=== PATIENT | female | born 1970 | race Hispanic/Latino ===

== ENCOUNTER 2024-12-27 14:14 | Observation (INO) | payer BC ==
[~2024-12-27] VITALS: Ht 170.2 cm; Wt 55.2 kg
[2024-12-27 15:16] LABS: BASOPHILS # (AUTO) 0.02 K/uL (0.00-0.20); BASOPHILS % (AUTO) 0.3 % (0.0-5.0); EOSINOPHILS # (AUTO) 0.05 K/uL (0.00-0.70); EOSINOPHILS % (AUTO) 0.7 % (0.0-8.0); HEMATOCRIT 42.6 % (36-48); IMMATURE GRANULOCYTE ABSOLUTE 0.01 K/uL (0-1); LYMPHOCYTES # (AUTO) 2.4 K/uL (1.0-4.8); LYMPHOCYTES % (AUTO) 35.1 % (21.0-51.0); MEAN CORPUSCULAR HEMOGLOBIN 31.5 pg (27.0-33.0); MEAN CORPUSCULAR HGB CONC 34.3 g/dL (32.0-36.0); MONOCYTES # (AUTO) 0.6 K/uL (0.1-1.0); MONOCYTES % (AUTO) 8.7 % (3.0-13.0); NEUTROPHILS # (AUTO) 3.8 K/uL (1.8-7.7); NEUTROPHILS % (AUTO) 55.1 % (40.0-77.0); PLATELET COUNT (AUTO) 157 K/uL (130-400); RED BLOOD CELL COUNT(AUTO) 4.63 MIL/uL (4.00-5.50); RED CELL DISTRIBUTION WIDTH 11.9 % (11.0-15.5); WHITE BLOOD COUNT (AUTO) 6.9 K/uL (4.8-10.8)
[2024-12-27 15:22] LABS: CREATININE 0.7 mg/dL (0.5-1.0)
--- NOTE | 2024-12-27 15:51 | HMCIMG ---
CT HEAD/BRAIN W/O CONTRAST INDICATION: persistent headaches/dizziness TECHNIQUE: CT HEAD/BRAIN W/O CONTRAST. CT was performed with one or more of the following dose reduction techniques: Automated exposure control, adjustment of the mA and/or kV according to the patient's size, or use of the iterative reconstruction technique. Comparison: None FINDINGS: The ventricles and extra ventricular CSF spaces are within normal limits. No mass effect, midline shift or herniation. No extra axial collection. No acute intracranial bleed. The visualized paranasal sinuses and mastoid air cells are normally aerated. IMPRESSION: No acute intracranial findings.
--- NOTE | 2024-12-27 16:09 | ERN ---
General Chief Complaint: Dizzy/Light Headed Stated Complaint: DIZZY, HEADACHE CHILLS Time Seen by MD: 14:31 Time Seen by Midlevel: 14:31 Source: patient History of Present Illness Initial Comments Patient is a 54-year-old female with no significant past medical history presenting to the emergency department for persistent headaches and dizziness that has been ongoing for 15 days. She has already been seen by her primary care doctor who performed a CT scan that was normal. He was scheduled an MRI but the patient was unable to get an appointment until April. She was also referred to Neurology but states it will take months to see the specialist. Allergies: Coded Allergies: No Known Drug Allergies (Unverified Allergy, Unknown, 12/27/24) Past Medical History Past Medical History: No Pertinent History Past Surgical History: ROS Dictation CONSTITUTIONAL: Negative except for HPI HEAD/FACE: Negative except for HPI EENT: Negative except for HPI RESPIRATORY: Negative except for HPI GASTROINTESTINAL/ABDOMINAL: Negative except for HPI GENITOURINARY: Negative except for HPI MUSCULOSKELETAL: Negative except for HPI INTEGUMENTARY: Negative except for HPI NEUROLOGICAL/PSYCH: Negative except for HPI HEMATOLOGIC/LYMPHATIC: Negative except for HPI All Systems Negative, Except as noted above. 13 point review of systems assessed and all negative except for above. Physical Exam Physical Exam Dictation Vital Signs reviewed General Appearance: Alert, oriented x 3, no acute distress, well developed, nourished. Head and Face: non-traumatic. Eyes: PERRL, pink conjunctivas, eyelid no trauma, anterior chamber with arcus senilis. Ears: Pinnas intact and no signs of trauma or erythema ear canals clear and no discharge TM no erythema Nose: No discharge, no bleeding. Oropharynx: Mouth normal, tongue pink, pharynx clear,no erythema, tonsils no exudates, no abscesses noted, mucous membrane moist Neck: Supple, non-tender, no thyromegaly, no masses, no JVD, no bruits Breast:Deferred Chest:No tenderness, no crepitus, no paradoxical movement, no retractions Lungs:Clear, well-ventilated, symmetric, no rales, no wheezing, no rhonchi, no stridor, good breath sounds bilaterally Heart: Regular rate, regular rhythm, no murmur, no gallops Vascular: no peripheral edema, Abdomen: Soft, positive bowel sounds, nondistended, no guarding, nontender, no rebound, no masses no hepatomegaly, no splenomegaly, no Cruz's sign, no hernias. Rectal: Deferred Genital: Deferred Neurological: Normal speech, motor function intact, sensory function intact Musculoskeletal: Neck nontender, full range of motion, back nontender, full range of motion, Extremities: nontender, full range of motion Skin: Color pink, dry, no turgor, no rash, no lacerations, no abrasions, no contusions. Lymphatic: Deferred Results Laboratory and Microbiology Lab and Micro Result Laboratory Tests Test 12/27/24 15:07 White Blood Count 6.9 K/uL (4.8-10.8) Red Blood Count 4.63 MIL/uL (4.00-5.50) Hemoglobin 14.6 g/dL (12.0-16.0) Hematocrit 42.6 % (36-48) Mean Corpuscular Volume 92.0 fL (79-99) Mean Corpuscular Hemoglobin 31.5 pg (27.0-33.0) Mean Corpuscular Hemoglobin Concent 34.3 g/dL (32.0-36.0) Red Cell Distribution Width 11.9 % (11.0-15.5) Platelet Count 157 K/uL (130-400) Mean Platelet Volume 10.2 fL (7.5-10.5) Immature Granulocyte % (Auto) 0.1 % (0-1) Neutrophils (%) (Auto) 55.1 % (40.0-77.0) Lymphocytes (%) (Auto) 35.1 % (21.0-51.0) Monocytes (%) (Auto) 8.7 % (3.0-13.0) Eosinophils (%) (Auto) 0.7 % (0.0-8.0) Basophils (%) (Auto) 0.3 % (0.0-5.0) Neutrophils # (Auto) 3.8 K/uL (1.8-7.7) Lymphocytes # (Auto) 2.4 K/uL (1.0-4.8) Monocytes # (Auto) 0.6 K/uL (0.1-1.0) Eosinophils # (Auto) 0.05 K/uL (0.00-0.70) Basophils # (Auto) 0.02 K/uL (0.00-0.20) Absolute Immature Granulocyte (auto 0.01 K/uL (0-1) Nucleated Red Blood Cells 0.0 % (0.0-0.19) Sodium Level 137 mmol/L (136-145) Potassium Level 4.0 mmol/L (3.5-5.1) Chloride Level 103 mmol/L (101-111) Carbon Dioxide Level 26 mmol/L (21-32) Blood Urea Nitrogen 13 mg/dL (7-18) Creatinine 0.7 mg/dL (0.5-1.0) Glomerular Filtration Rate Calc 103 mL/min (>90) Random Glucose 75 mg/dL (70-105) Total Calcium 9.1 mg/dL (8.5-10.1) Serum Test, Qualitative NEGATIVE (NEGATIVE) MDM MDM: Patient is a 54-year-old female with no significant past medical history presenting to the emergency department for persistent headaches and dizziness that has been ongoing for 15 days. She has already been seen by her primary care doctor who performed a CT scan that was normal. He was scheduled an MRI but the patient was unable to get an appointment until April. She was also referred to Neurology but states it will take months to see the specialist. Today she was presenting to the ER and requesting an MRI stating that she can not wait to get the MRI performed. She also states her blood pressure has been running high at home. When asked what her blood pressures at home have been she states 140 systolic. She states that she normally runs in the 120s and if she goes up to the 140s she feels "terrible". Her primary care doctor does not want to start her on blood pressure medication because he believes she does not need them. Initial vital signs are stable. Patient was afebrile and nontoxic appearing. On physical examination the patient was in no acute respiratory distress. Neurological examination is unremarkable. GCS of 15. Given her persistent symptoms a CT scan of the head was ordered to rule out any acute intracranial abnormality however the CT scan is unremarkable. I obtain basic blood work to rule out any electrolyte abnormalities however CBC shows no leukocytosis, no anemia, no thrombocytopenia. Chemistries unremarkable. On repeat examination the patient reports persistent dizziness. Unable to ambulate secondary to and dizziness. We will admit for further observation and management. Differential diagnosis: Vertigo, intracranial bleed, anxiety There are no social concerns with this patient. Prescription drug management Prescriptions will include: None Medical management and examination interpretation discussions were had by me with other qualified healthcare professionals as indicated for the patient's care. ED Course Orders Procedure Category Date Status Time Cbc With Differential LAB 12/27/24 Complete 14:57 Basic Metabolic Panel LAB 12/27/24 Complete 14:57 Testing, LAB 12/27/24 Complete Serum Hcg 14:57 Ct Head/Brain W/O CT 12/27/24 Resulted Contrast 14:57 Vital Signs Date Time Temp Pulse Resp B/P (MAP) Pulse Ox O2 Delivery O2 Flow Rate FiO2 12/27/24 16:29 98.2 58 16 149/73 100 Room Air* 0 21 12/27/24 14:23 98.2 60 18 160/82 99 Room Air [address] [address] IMAGING REPORT Signed PATIENT: MAYRA BASURTO MR#: [id number] : 1970 SEX: F AGE: 54 LOCATION: [facility] ORDER 57 STATUS: REG REPORT#: [id number] SERVICE 56 REASON: persistent headaches/dizziness ORDERING PHYSICIAN: VANESSA COLON PROCEDURE: HEAD WO - CT HEAD/BRAIN W/O CONTRAST CT HEAD/BRAIN W/O CONTRAST INDICATION: persistent headaches/dizziness TECHNIQUE: CT HEAD/BRAIN W/O CONTRAST. CT was performed with one or more of the following dose reduction techniques: Automated exposure control, adjustment of the mA and/or kV according to the patient's size, or use of the iterative reconstruction technique. Comparison: None FINDINGS: The ventricles and extra ventricular CSF spaces are within normal limits. No mass effect, midline shift or herniation. No extra axial collection. No acute intracranial bleed. The visualized paranasal sinuses and mastoid air cells are normally aerated. IMPRESSION: No acute intracranial findings. DICTATED BY: MILADYS PATHAK MD DATE: 12/27/24 1547 ELECTRONICALLY SIGNED BY: MILADYS PATHAK MD DATE: 12/27/24 5431 DX & DISP Disposition: Discharge Departure Impression: Primary Impression: Dizziness Additional Impression: Persistent headaches Condition: Stable Referrals: PATY GOMEZ (PCP) Time of Disposition: 16:08 I have reviewed the case, and I agree with, Diagnosis and Plan I performed the substantive portion of the visit. I have reviewed and personally made and approve the management plan that is documented in the note by myself or the GERARDO. I acknowledge for responsibility for the patient's management plan. VANESSA COLON Dec 27, 2024 16:09
[2024-12-27 18:26] LABS: APPEARANCE,URINE CLEAR (CLEAR); BILIRUBIN,URINE NEGATIVE (NEGATIVE); COLOR,URINE COLORLESS (YELLOW); GLUCOSE, URINE (UA) NEGATIVE (NEGATIVE); KETONES,URINE NEGATIVE (NEGATIVE); LEUKOCYTE ESTERASE ,URINE 500 Leu/uL (NEGATIVE); NITRATE,URINE NEGATIVE (NEGATIVE); OCCULT BLOOD,URINE NEGATIVE (NEGATIVE); PH,URINE 6.5 (5.0-8.0); PROTEIN,URINE NEGATIVE (NEGATIVE); UROBILINOGEN,URINE 0.2 mg/dL (0.2-1.0)
[2024-12-27 18:28] LABS: ADD UA MICROSCOPIC YES
[2024-12-27 18:29] LABS: BACTERIA,URINE RARE /HPF (None Seen); RBC,URINE 0-1 /HPF (0-1); SQUAMOUS EPITHELIAL CELL,UR RARE /HPF (0-2); WBC,URINE 26-50 /HPF (0-1)
[2024-12-27] MEDS: mecliZINE HCL 25 MG TABLET PO ONE (19:01)
[2024-12-27] MEDS ORDERED: TEMAZepam 15 MG CAPSULE PO PRN (19:30)
[2024-12-27] MEDS ORDERED: acetaMINOPHEN 650 MG SUPPOSITORY RC PRN (19:30)
[2024-12-27] MEDS ORDERED: doCUSate SODIUM 100 MG CAP PO PRN (19:30)
[2024-12-27] MEDS ORDERED: ondanSETRON 4MG INJ IVP PRN (19:30)
[2024-12-27] MEDS ORDERED: LACTULOSE 20 GM/30 ML UDCUP PO PRN (19:30)
[2024-12-27] MEDS ORDERED: LAbetaLOL 20MG SYG IV PRN (19:30)
--- NOTE | 2024-12-27 19:30 | HP ---
[facility] HISTORY AND PHYSICAL Date of Service: Dec 27, 2024 Time of Service: 19:29 PCP: Dr. Fidel Velez Supervising/attending physicians: Dr. Velazquez and Dr. Alanis HISTORY OF PRESENT ILLNESS: Ms. Morse is a 54-year-old female with no significant past medical history who presented to [facility] for evaluation of persistent headaches and dizziness that has been ongoing for 15 days. She has has seen by her primary care doctor who performed a CT scan that was normal. He is scheduled an MRI in April. She was also referred to Neurology but states it will take months to see the specialist. The patient reports that her pain is in the posterior upper neck and posterior lower head. She reports that this pain radiates to the left side of her forehead. She reports that this pain sometimes feels like tingling. Patient reports that with this pain she becomes anxious, a little short of breath, and feels that her left arm and her left leg feel weak during the pain. Patient reports that the symptoms of anxiety, shortness of breath and weakness to the left extremities go away when the headache goes away. The patient denies any other neurological symptoms. The patient states that recently she has had high blood pressure and that her PCP states that the new onset of high blood pressure is due to her pain. The patient states that her PCP did not give her any medications for the high blood pressure and was informed to take Tylenol for the pain. The patient has been treated for the dizziness by her PCP with Atarax 25 mg p.o. b.i.d. for anxiety, Compazine 10 mg tablet oral t.i.d. for dizziness, and meclizine 12.5 Mg p.o. prn dizziness t.i.d. times 10 days. The patient denied any other illness, fevers, nausea, vomiting, pain with urination, or any other pain. The patient's labs were unremarkable. Except for glucose of 116. UA was positive for leuk EST. Orthostatic vital signs: Lyin/74, heart rate 54 were bpm, sittin/74, heart rate 57 beats per minute, standing 135/81, heart rate 63 beats per minute. Dysphagia test was passed in ED. The patient was administered meclizine 25 mg p.o. in ED. Patient was seen and assessed by me. Information above was obtained. No family at bedside. Patient appeared comfortable, breathing was even, unlabored, in no distress. GCS 15, NIH 0. I informed the patient of labs, diagnostics, and plan of care. The patient verbalized understanding and is in agreement with the plan. Plan and assessment are listed below. Plan and assessment are listed below. REVIEW OF SYSTEMS 12-point ROS reviewed with patient. All pertinent positives mentioned above. Otherwise negative, noncontributory, non-pertinent. PAST MEDICAL HISTORY: In no medical history PAST SURGICAL HISTORY: As mentioned above PAST SOCIAL HISTORY: Patient denies alcohol, tobacco, illicit drug use. FAMILY HISTORY: Negative Coded Allergies: No Known Drug Allergies (Unverified Allergy, Unknown, 12/27/24) PHYSICAL EXAM GENERAL APPEARANCE: The patient is awake, alert, and oriented, in no acute cardiopulmonary distress. NEUROLOGICAL: Cranial nerves II-XII grossly intact. Motor is 5/5 in bilateral upper and lower extremities proximal to distal. No sensory deficits. HEENT: Face is symmetric. Pupils are equal and reactive. Extraocular movements are intact. NECK: Supple. No JVD. No thyromegaly. No submental, submandibular, pre- /postauricular, occipital or supraclavicular lymphadenopathy. CHEST: Normal chest expansion. No Telemetry. LUNGS: Absence of any rales, rhonchi or any wheezing. CARDIOVASCULAR: Regular. S1 and S2 normal. No appreciable rubs, murmurs or gallops. ABDOMEN: Soft, nontender, and nondistended. There is no rebound, voluntary guarding, or rigidity. : Deferred. No Almodovar. EXTREMITIES: Non-edematous and not cyanotic. No clubbing. Good capillary refill. SKIN: No skin breakdown. Vital Sign (Last 24 Hours) 12/27/24 16:29 Temp 98.2 Pulse 58 Resp 16 B/P (MAP) 149/73 Pulse Ox 100 O2 Delivery Room Air* O2 Flow Rate 0 FiO2 21 LABS: Laboratory: Test 12/27/24 15:09 12/27/24 15:07 Range/Units Urine Color COLORLESS YELLOW Urine Appearance CLEAR CLEAR Urine pH 6.5 5.0-8.0 Urine Specific [place] 1.005 1.001-1.031 Urine Protein NEGATIVE NEGATIVE mg/dL Urine Glucose (UA) NEGATIVE NEGATIVE mg/dL Urine Ketones NEGATIVE NEGATIVE mg/dL Urine Occult Blood NEGATIVE NEGATIVE Urine Nitrate NEGATIVE NEGATIVE Urine Bilirubin NEGATIVE NEGATIVE mg/dL Urine Urobilinogen 0.2 0.2-1.0 mg/dL Urine Leukocyte Esterase 500 H NEGATIVE [place]/uL Urine RBC 0-1 0-1 /HPF Urine WBC 26-50 H 0-1 /HPF Urine Squamous Epithelial Cells RARE 0-2 /HPF Urine Bacteria RARE None Seen /HPF White Blood Count 6.9 4.8-10.8 K/uL Red Blood Count 4.63 4.00-5.50 MIL/uL Hemoglobin 14.6 12.0-16.0 g/dL Hematocrit 42.6 36-48 % Mean Corpuscular Volume 92.0 79-99 fL Mean Corpuscular Hemoglobin 31.5 27.0-33.0 pg Mean Corpuscular Hemoglobin Concent 34.3 32.0-36.0 g/dL Red Cell Distribution Width 11.9 11.0-15.5 % Platelet Count 157 130-400 K/uL Mean Platelet Volume 10.2 7.5-10.5 fL Immature Granulocyte % (Auto) 0.1 0-1 % Neutrophils (%) (Auto) 55.1 40.0-77.0 % Lymphocytes (%) (Auto) 35.1 21.0-51.0 % Monocytes (%) (Auto) 8.7 3.0-13.0 % Eosinophils (%) (Auto) 0.7 0.0-8.0 % Basophils (%) (Auto) 0.3 0.0-5.0 % Neutrophils # (Auto) 3.8 1.8-7.7 K/uL Lymphocytes # (Auto) 2.4 1.0-4.8 K/uL Monocytes # (Auto) 0.6 0.1-1.0 K/uL Eosinophils # (Auto) 0.05 0.00-0.70 K/uL Basophils # (Auto) 0.02 0.00-0.20 K/uL Absolute Immature Granulocyte (auto 0.01 0-1 K/uL Nucleated Red Blood Cells 0.0 0.0-0.19 % Sodium Level 137 136-145 mmol/L Potassium Level 4.0 3.5-5.1 mmol/L Chloride Level 103 101-111 mmol/L Carbon Dioxide Level 26 21-32 mmol/L Blood Urea Nitrogen 13 7-18 mg/dL Creatinine 0.7 0.5-1.0 mg/dL Glomerular Filtration Rate Calc 103 >90 mL/min Random Glucose 75 70-105 mg/dL Total Calcium 9.1 8.5-10.1 mg/dL Serum Test, Qualitative NEGATIVE NEGATIVE DIAGNOSTICS / RADIOLOGY: [ ] ASSESSMENT: Intractable/recurrent left posterior headache radiates to left forehead, POA Dizziness, POA Hypertension, pain induced versus new onset hypertension Acute complicated cystitis, POA Hyperglycemia, without history of DM PLAN: -Admit to med tele/stroke unit -Neurological checks every 4 hours and as needed. -Continuous telemetry monitoring. -Antiplatelet therapy with Aspirin. -Atorvastatin 40 mg p.o. daily. -Blood pressure checks every 4 hours and as needed. -Systolic blood pressure between 120 to 160 to maintain adequate brain perfusion. -Patient passed dysphagia screen by nurse. -MRI of brain without contrast. MRA head without contrast, MRA neck pending to be done in a.m. -Pending Echo complete with spectral + color Doppler with bubble study to be done in am. -Pending carotids. DX: dizziness. -Consult neurology in a.m. -Continue Meclizine 25 mg p.o. t.i.d. times 24 hours. -Start Rocephin 2 g IV daily. -Follow UA cultures. -Reconcile home medications once available. -Glucometer checks before meals and at bedtime with regular insulin sliding scale as needed -Education on low fat diet. -PT/OT evaluation. -AM labs: CBC, CMP, LFT, mag, phos, TSH, A1C, vit B12 level, folic acid leverl. -Monitor renal and liver function, monitor electrolytes and replace PRN -GI and DVT Pepcid IV daily, Lovenox, SCDs. ADVANCED CARE PLANNING 1. Which of the following were discussed? Hospice Care - No Therapeutic options - Yes Advance Directives - Yes Other discussions - 2. Discussed with who? Patient 3. Voluntary nature of this service was explained to the patient? Yes 4. Amount of time spent - ___ over45 minute ____ 5. Reviewed by Physician? (if this service was performed by NPP) Yes ATTESTATION BY PHYSICIAN I have seen and examined the patient. I reviewed the documentation, medical decision making, and treatment plan as noted by the mid-level provider above. I agree with the findings and plan of care. CHERIE PAZ [employer] Dec 27, 2024 19:30
[2024-12-27] MEDS: HYDROcodone/APAP 5/325 1 TAB TABLET PO PRN (19:38)
[2024-12-27] MEDS: CEFTRIAXONE 2GM VIAL IVPB SCH (20:05)
[2024-12-27] MEDS: FAMOTIDINE 20MG TAB PO SCH (20:14)
--- NOTE | 2024-12-27 20:32 | HMCIMG ---
US CAROTID DUPLEX HISTORY: dizziness TECHNIQUE: Real time color doppler ultrasound examination of both carotid systems was performed using B mode, color flow and spectral analysis. FINDINGS: Right Extracranial Circulation: CCA peak systolic velocity 58 cm/sec ICA peak systolic velocity of 76 cm/sec ECA peak systolic velocity of 101 cm/sec Ratio ICA/CCA = 1.3 Vertebral artery 38 cm/sec Left Extracranial Circulation: CCA peak systolic velocity 55 cm/sec ICA peak systolic velocity of 95 cm/sec ECA peak systolic velocity of 72 cm/sec Ratio ICA/CCA = 1.7 Vertebral artery 50 cm/sec Left neck lymph node is seen measuring 5 mm. IMPRESSION: No evidence of flow-limiting stenosis by velocity criteria in the visualized bilateral ICA.
[2024-12-27] MEDS: INSULIN humuLIN R 100 UNIT/ML 3ML SQ SCH (21:00)
[2024-12-27] MEDS: ASPIRIN 81 MG EC TAB PO ONE (21:21)
[2024-12-27] MEDS: atorVAStatin 40 MG TABLET PO SCH (21:21)
[2024-12-27 22:30] VITALS: BP 162/83; PULSE 55; RESP 19; TEMP 98.7
[2024-12-27 23:45] VITALS: O2SAT 99
[2024-12-28 04:00] VITALS: BP 109/59; PULSE 54; RESP 16; TEMP 97.4
[2024-12-28 04:08] LABS: BASOPHILS # (AUTO) 0.02 K/uL (0.00-0.20); BASOPHILS % (AUTO) 0.3 % (0.0-5.0); EOSINOPHILS # (AUTO) 0.08 K/uL (0.00-0.70); EOSINOPHILS % (AUTO) 1.4 % (0.0-8.0); HEMATOCRIT 39.4 % (36-48); IMMATURE GRANULOCYTE ABSOLUTE 0.02 K/uL (0-1); LYMPHOCYTES # (AUTO) 2.8 K/uL (1.0-4.8); LYMPHOCYTES % (AUTO) 48.3 % (21.0-51.0); MEAN CORPUSCULAR HEMOGLOBIN 31.5 pg (27.0-33.0); MEAN CORPUSCULAR HGB CONC 34.3 g/dL (32.0-36.0); MEAN CORPUSCULAR VOLUME 91.8 fL (79-99); MONOCYTES # (AUTO) 0.4 K/uL (0.1-1.0); MONOCYTES % (AUTO) 7.5 % (3.0-13.0); NEUTROPHILS # (AUTO) 2.4 K/uL (1.8-7.7); NEUTROPHILS % (AUTO) 42.2 % (40.0-77.0); PLATELET COUNT (AUTO) 151 K/uL (130-400); RED BLOOD CELL COUNT(AUTO) 4.29 MIL/uL (4.00-5.50); WHITE BLOOD COUNT (AUTO) 5.7 K/uL (4.8-10.8)
[2024-12-28 04:41] LABS: ALBUMIN 3.6 g/dL (3.5-5.0); BILIRUBIN,TOTAL 1.1 mg/dL (0.2-1.0); CREATININE 0.8 mg/dL (0.5-1.0); PHOSPHORUS 4.9 mg/dL (2.5-4.9); POTASSIUM 4.6 mmol/L (3.5-5.1); THYROID STIMULATING HORMONE 2.25 uIU/mL (0.36-3.74); TOTAL PROTEIN, SERUM 7.3 g/dL (6.0-8.3)
[2024-12-28 05:39] LABS: HEMOGLOBIN A1C 5.8 % (4.0-6.0)
[2024-12-28 08:00] VITALS: BP 97/60; PULSE 63; RESP 20; TEMP 98
[2024-12-28 08:03] LABS: SARS-CoV-2, RNA, NAAT NEGATIVE SARS CoV-2 (NEGATIVE)
[2024-12-28 08:06] LABS: INFLUENZA TYPE A Negative For Type A (NEGATIVE)
[2024-12-28 08:21] LABS: INFLUENZA TYPE B Positive For Type B (NEGATIVE)
[2024-12-28 08:38] LABS: AMPHET/METH SCREEN,URINE NEGATIVE (NEGATIVE); BARBITURATE SCREEN, URINE NEGATIVE (NEGATIVE); BENZODIAZEPINES SCREEN,URINE NEGATIVE (NEGATIVE); CANNABINOID SCREEN,URINE NEGATIVE (NEGATIVE); COCAINE SCREEN,URINE NEGATIVE (NEGATIVE); OPIATE SCREEN,URINE POSITIVE (NEGATIVE); PHENCYCLIDINE SCREEN,URINE NEGATIVE (NEGATIVE)
[2024-12-28] MEDS: ENOXAPARIN SODIUM 30 MG/0.3 ML SQ SCH (09:00)
--- NOTE | 2024-12-28 09:09 | CONS ---
CONSULTATION NOTE Date of Service: Dec 28, 2024 Reason for Consultation: Headaches Requesting Physician: Hospitalist HISTORY OF PRESENT ILLNESS: Ms. Morse, a 54-year-old female with no significant medical history, presents with a 15-day history of headaches and dizziness. The patient reports experiencing headaches primarily on the left side of her head, describing them as pulsating in nature. The pain extends from the occipital region to the left ear and sometimes to the frontal area. She occasionally feels sensations like "spiders" on her skull. The headaches are associated with photophobia and mild nausea. On a scale of 0-10, she currently rates the pain as a 3. Accompanying the headaches, Ms. Morse experiences dizziness. Initially, she felt like everything was spinning, but now she describes a sensation of light movement and feeling like she might faint, as if lacking air or blood. The dizziness is exacerbated by laughing and is described as "strong." She notes that when the headache improves, the other symptoms also improve. After episodes of dizziness, she reports feeling cold. Ms. Morse mentions that recent laboratory tests revealed she has type B influenza. She also reports having "a lot of water behind the drum" in her ear and a history of suffering from vertigo. The patient expresses anxiety about her symptoms, particularly concern about having "something in her head." REVIEW OF SYSTEMS Review of Systems General: Positive for feeling cold. HEENT: Positive for photophobia, ear fullness. Negative for phonophobia. Gastrointestinal: Positive for mild nausea. Neurological: Positive for headache, dizziness, vertigo, sensation of fainting. PAST MEDICAL HISTORY: Unremarkable PAST SURGICAL HISTORY: No previous surgical history PAST SOCIAL HISTORY: No tobacco alcohol recreational drug abuse FAMILY HISTORY: No family history of stroke or seizures Coded Allergies: No Known Drug Allergies (Unverified Allergy, Unknown, 12/27/24) PHYSICAL EXAM Mental status: The patient is alert, attentive, and oriented. Speech is clear and fluent with good repetition, comprehension, and naming. Pt recalls 3/3 objects at 5 minutes. Cranial nerves: CN II: Visual valentin are full to confrontation. CN III, IV, : At primary gaze, there is no eye deviation. CN V: Facial sensation is intact to pinprick in all 3 divisions bilaterally. Corneal responses are intact. CN VII: Face is symmetric with normal eye closure and smile. CN VIII: Hearing is normal to rubbing fingers CN IX, X: Palate elevates symmetrically. Phonation is normal. CN XI: Head turning and shoulder shrug are intact CN XII: Tongue is midline with normal movements and no atrophy. Motor: There is no pronator drift of out-stretched arms. Muscle bulk and tone are normal. Strength is full bilaterally. Reflexes: Reflexes are 2+ and symmetric at the biceps, triceps, knees, and ankles. Plantar responses are flexor. Sensory: Light touch, pinprick, position sense, and vibration sense are intact in fingers and toes. Coordination: Rapid alternating movements and fine finger movements are intact. There is no dysmetria on [id number] and [id number]. There are no abnormal or extraneous movements. Romberg is absent. Gait/Stance: Not evaluated NIHSS: 0 Vital Sign (Last 24 Hours) 12/27/24 12/28/24 12/28/24 23:45 04:00 08:00 Temp 98.1 Pulse 63 Resp 20 B/P (MAP) 97/60 Pulse Ox 98 O2 Delivery Room Air O2 Flow Rate 0 FiO2 21 LABS: Laboratory: Test 12/28/24 07:05 12/28/24 07:04 12/28/24 05:16 12/28/24 03:33 Range/Units Influenza Type A Antigen Negative For Type A NEGATIVE Influenza Type B Antigen Positive For Type B *A NEGATIVE SARS-CoV-2, RNA, NAAT NEGATIVE SARS CoV-2 NEGATIVE Urine Opiates Screen POSITIVE H NEGATIVE Urine Barbiturates Screen NEGATIVE NEGATIVE Urine Phencyclidine Screen NEGATIVE NEGATIVE Urine Amphetamines Screen NEGATIVE NEGATIVE Urine Benzodiazepines Screen NEGATIVE NEGATIVE Urine Cocaine Screen NEGATIVE NEGATIVE Urine Marijuana (THC) Screen NEGATIVE NEGATIVE Whole Blood Glucose 103 70-110 MG/DL White Blood Count 5.7 4.8-10.8 K/uL Red Blood Count 4.29 4.00-5.50 MIL/uL Hemoglobin 13.5 12.0-16.0 g/dL Hematocrit 39.4 36-48 % Mean Corpuscular Volume 91.8 79-99 fL Mean Corpuscular Hemoglobin 31.5 27.0-33.0 pg Mean Corpuscular Hemoglobin Concent 34.3 32.0-36.0 g/dL Red Cell Distribution Width 12.0 11.0-15.5 % Platelet Count 151 130-400 K/uL Mean Platelet Volume 10.7 H 7.5-10.5 fL Immature Granulocyte % (Auto) 0.3 0-1 % Neutrophils (%) (Auto) 42.2 40.0-77.0 % Lymphocytes (%) (Auto) 48.3 21.0-51.0 % Monocytes (%) (Auto) 7.5 3.0-13.0 % Eosinophils (%) (Auto) 1.4 0.0-8.0 % Basophils (%) (Auto) 0.3 0.0-5.0 % Neutrophils # (Auto) 2.4 1.8-7.7 K/uL Lymphocytes # (Auto) 2.8 1.0-4.8 K/uL Monocytes # (Auto) 0.4 0.1-1.0 K/uL Eosinophils # (Auto) 0.08 0.00-0.70 K/uL Basophils # (Auto) 0.02 0.00-0.20 K/uL Absolute Immature Granulocyte (auto 0.02 0-1 K/uL Nucleated Red Blood Cells 0.0 0.0-0.19 % Sodium Level 140 136-145 mmol/L Potassium Level 4.6 3.5-5.1 mmol/L Chloride Level 105 101-111 mmol/L Carbon Dioxide Level 29 21-32 mmol/L Blood Urea Nitrogen 11 7-18 mg/dL Creatinine 0.8 0.5-1.0 mg/dL Glomerular Filtration Rate Calc 88 >90 mL/min Random Glucose 102 70-105 mg/dL Hemoglobin A1c 5.8 4.0-6.0 % Estimated Average Glucose (eAG) 120 70-126 mg/dL Total Calcium 9.0 8.5-10.1 mg/dL Phosphorus Level 4.9 2.5-4.9 mg/dL Magnesium Level 2.00 1.80-2.40 mg/dL Total Bilirubin 1.1 H 0.2-1.0 mg/dL Aspartate Amino Transf (AST/SGOT) 18 10-37 U/L Alanine Aminotransferase (ALT/SGPT) 21 12-78 U/L Alkaline Phosphatase 73 50-136 U/L Total Protein 7.3 6.0-8.3 g/dL Albumin 3.6 3.5-5.0 g/dL Vitamin B12 Level 663 193-986 pg/mL Folic Acid (LAB) > 20.00 H 2-20 ng/mL Thyroid Stimulating Hormone (TSH) 2.25 0.36-3.74 uIU/mL Test 12/27/24 15:09 12/27/24 15:07 Range/Units Urine Color COLORLESS YELLOW Urine Appearance CLEAR CLEAR Urine pH 6.5 5.0-8.0 Urine Specific Stanley 1.005 1.001-1.031 Urine Protein NEGATIVE NEGATIVE mg/dL Urine Glucose (UA) NEGATIVE NEGATIVE mg/dL Urine Ketones NEGATIVE NEGATIVE mg/dL Urine Occult Blood NEGATIVE NEGATIVE Urine Nitrate NEGATIVE NEGATIVE Urine Bilirubin NEGATIVE NEGATIVE mg/dL Urine Urobilinogen 0.2 0.2-1.0 mg/dL Urine Leukocyte Esterase 500 H NEGATIVE [place]/uL Urine RBC 0-1 0-1 /HPF Urine WBC 26-50 H 0-1 /HPF Urine Squamous Epithelial Cells RARE 0-2 /HPF Urine Bacteria RARE None Seen /HPF Serum Test, Qualitative NEGATIVE NEGATIVE DIAGNOSTICS / RADIOLOGY: CTH: normal ASSESSMENT / PLAN: Ms. Morse, a 54-year-old female with no significant medical history, presents with a 15-day history of left-sided headaches and dizziness. Acute Migraine Headache Assessment: Patient presents with a 15-day history of left-sided headaches, described as pulsating and occasionally extending from the occipital region to the left ear. Associated symptoms include photophobia and mild nausea. The headache intensity is currently reported as 3/10. The clinical presentation is consistent with migraine, potentially triggered by a concurrent influenza B infection. Differential diagnosis includes tension-type headache and secondary headaches due to intracranial pathology, though the latter is less likely given the absence of red flag symptoms. Plan: - Start topiramate 25mg po day - Order MRI of the brain to rule out intracranial pathology - Likely to be performed tomorrow due to holiday schedule - Educate patient on the relationship between influenza infection and migraine triggers Episodic Peripheral Vertigo Assessment: Patient reports a history of dizziness, initially presenting as a sensation of everything spinning, which has now evolved into a feeling of light movement and near-syncope. Physical examination of cranial nerves and motor function was unremarkable. Patient mentions a previous diagnosis of "a lot of water behind the drum" and a propensity for vertigo. Given these findings and the concurrent influenza B infection, the vertigo is likely peripheral in origin, possibly due to otitis media or labyrinthitis secondary to the viral infection. Plan: - Defer management to Dr. Velazquez for appropriate treatment of ear infection and influenza B - Reassure patient that symptoms are likely related to ear infection and not i ntracranial pathology Influenza B Infection Assessment: Patient has a confirmed diagnosis of influenza B based on laboratory testing. This viral infection is likely contributing to both the migraine and vertigo symptoms. Plan: - Management to be overseen by Dr. Velazquez - Start antiviral medication Thank you for your consultation. I will sign off. Please reconsult if MRI is positive for stroke MEG DELGADO MD Dec 28, 2024 09:09
[2024-12-28] MEDS: ASPIRIN 81 MG EC TAB PO SCH (10:14)
[2024-12-28] MEDS: acetaMINOPHEN 500 MG TABLET PO PRN (10:15)
[2024-12-28] MEDS: mecliZINE HCL 25 MG TABLET PO SCH (10:15)
[2024-12-28] MEDS: PROCHLORPERAZINE 10MG/2ML INJ IV PRN (10:26)
[2024-12-28] MEDS: DiphenhydrAMINE HCL 50 MG/ML VIAL IV PRN (10:26)
[2024-12-28 12:00] VITALS: BP 128/74; PULSE 60; RESP 18; TEMP 97.7
--- NOTE | 2024-12-28 12:04 | HMCIMG ---
MR BRAIN WO CON HISTORY: dizziness, recurrent headache, intermittent left arm/leg weakness with SAXENA TECHNIQUE: Multiplanar multisequence MRI of the brain was performed without contrast. FINDINGS: Artifact versus 3 mm focus of restricted diffusion in the inferior left cerebellum. Minimal scattered bilateral nonspecific white matter changes Correlate clinically. The ventricles and extra ventricular CSF spaces are within normal limits. No mass effect, midline shift or herniation. No extra axial collection. No acute intracranial bleed. The visualized paranasal sinuses and mastoid air cells are normally aerated. IMPRESSION: Artifact versus 3 mm focus of restricted diffusion in the inferior left cerebellum. Minimal scattered bilateral nonspecific white matter changes Correlate clinically.
--- NOTE | 2024-12-28 12:13 | HMCIMG ---
MR ANGIO HEAD, WO CON HISTORY: dizziness, persistent/intractable headaches TECHNIQUE: MR ANGIO HEAD, WO CON. Vessels were imaged utilizing three-dimensional time of flight MR angiographic technique. MIP and source images are presented. FINDINGS: . The visualized bilateral vertebral and basilar arteries are patent. No significant stenosis in the posterior cerebral arteries. The bilateral internal carotid arteries are patent without high-grade stenosis. No significant stenosis seen in the anterior cerebral and middle cerebral arteries up to the bifurcation. No aneurysm is seen. However, the presence of an aneurysm 3 mm or smaller may not be evident on MR angiography. No vascular displacement is seen. Impression: No evidence of high-grade stenosis or major vessel occlusion.
--- NOTE | 2024-12-28 12:14 | HMCIMG ---
MRA CAROTIDS WO HISTORY: recurrent posterior L SAXENA/ L upper neck pain, dizziness, L arm/leg weakness TECHNIQUE: MRA CAROTIDS WO. MR angiography was performed using [id number] angiographic techniques. FINDINGS: Evaluation of the proximal vessels is degraded due to artifact. No high-grade stenosis is seen of either extracranial carotid artery system. Both vertebral arteries are seen with antegrade flow. IMPRESSION: No flow-limiting stenosis or major vessel occlusion is seen.
--- NOTE | 2024-12-28 13:05 | HMCSR ---
APPROVED REPORT EXAM: Two-dimensional and M-mode echocardiogram with Doppler and color Doppler. INDICATION ICD: dizziness 2D Dimensions RVDd2.7 cmLVEF(%)72.9 (>50%)LVED Vol(simp.)65.0 mL IVSd0.8 (0.7-1.1cm)FS(%)41 %LVES Vol(simp.)29.0 mL LVDd3.8 (3.8-5.6cm)LA (2D)2.4 (1.6-4.0cm)LVEF(%, simp.)56 % PWd0.9 (0.7-1.1cm)Ao Root(2D)2.7 (2.0-3.7cm)LA ESV INDEX (BP)17.94 mL/m2 LVDs2.2 (2.5-4.0cm)LVOT diam1.9 (1.8-2.4cm) Deformation Strain Apical 4-18.3 % Apical 2-19.5 % Apical 3-17.2 % Global Strain-18.3 % M-Mode Dimensions EPSS0.5 cm LA (MM)2.7 (1.6-4.0cm) Ao Root(MM)2.5 (2.0-3.7cm) Aortic Valve AoV Vmax1.3 m/Laura Peak GR7.2 mmHgLVOT Vmax1.3 m/s AoV VTI0.3 mAo Mean GR3.3 mmHgLVOT VTI0.28 m RICCO (VMAX)2.39 cm2AVA (VTI) 2.4 cm2 Mitral Valve MV E Vmax74.8 cm/sDECEL Afuc116 ms MV A Vmax70.1 cm/sP 1/2 T93 ms E/A ratio1.1MVA (PHT)2.4 cm2 TDI E/E' Medial8.5E/E' Lateral5.4 Medial E' Peak V8.78 cm/sLateral E' Peak V13.87 cm/s Pulmonary Valve PV Vmax1.1 m/sPV Mean GR3.0 mmHg PV Peak GR4.9 mmHg Tricuspid Valve TR Vmax2.2 m/sRVSP18.9 mmHg TR Peak GR19.5 mmHg Left Ventricle Left ventricular cavity size is normal. There is normal LV segmental wall motion. There is normal lef t ventricular wall thickness. LVEF is 55-60%. The left ventricular diastolic function is normal. Right Ventricle The right ventricle is normal size. The right ventricular systolic function is normal. Atria The left atrium size is normal. The right atrium size is normal. Aortic Valve The aortic valve is normal in structure and function. No aortic regurgitation is present. There is no aortic valvular stenosis. Mitral Valve The mitral valve is normal in structure and function. There is trace mitral valve regurgitation noted . There is no mitral valve stenosis. Tricuspid Valve The tricuspid valve is normal in structure and function. There is trace tricuspid valve regurgitation noted. Pulmonic Valve Pulmonic valve is not well visualized. There is no pulmonic valvular regurgitation. Great Vessels The aortic root is normal in size. The IVC is normal in size and collapses >50% with inspiration. Pericardium No pericardial effusion. Other Information Quality : Good Conclusion Left ventricular cavity size is normal. LVEF is 55-60% with normal LV segmental wall motion. The left ventricular diastolic function is normal. The right ventricular systolic function is normal. Both atria are normal in size. No hemodynamically significant valvular abnormalities. No pericardial effusion.
--- NOTE | 2024-12-28 13:12 | PN ---
[facility] PROGRESS NOTE Date of Service: Dec 28, 2024 Time of Service: 13:00 SUBJECTIVE: [ ] Ms. Morse is a 54-year-old female with no significant past medical history who presented to [facility] [place] [facility] [place] of persistent headaches and dizziness that has been ongoing for 15 days. She has has seen by her primary care doctor who performed a CT scan that was normal. He is scheduled an MRI in April. She was also referred to Neurology but states it will take months to see the specialist. The patient reports that her pain is in the posterior upper neck and posterior lower head. She reports that this pain radiates to the left side of her forehead. She reports that this pain sometimes feels like tingling. Patient reports that with this pain she becomes anxious, a little short of breath, and feels that her left arm and her left leg feel weak during the pain. Patient reports that the symptoms of anxiety, shortness of breath and weakness to the left extremities go away when the headache goes away. The patient denies any other neurological symptoms. The patient states that recently she has had high blood pressure and that her PCP states that the new onset of high blood pressure is due to her pain. The patient states that her PCP did not give her any medications for the high blood pressure and was informed to take Tylenol for the pain. The patient has been treated for the dizziness by her PCP with Atarax 25 mg p.o. b.i.d. for anxiety, Compazine 10 mg tablet oral t.i.d. for dizziness, and meclizine 12.5 Mg p.o. prn dizziness t.i.d. times 10 days. The patient denied any other illness, fevers, nausea, vomiting, pain with urination, or any other pain. 12/28-patient was seen and examined at the bedside. vitals Stable labs unremarkable. Evaluated by Neurology Dr. Rivera clinical presentation is consistent with migraine, potentially triggered by a concurrent influenza B infection. Differential diagnosis includes tension-type headache and secondary headaches due to intracranial pathology, though the latter is less likely given the absence of red flag symptoms. Plan:- Start topiramate 25mg po day - Order MRI of the brain to rule out intracranial pathology-Artifact versus 3 mm focus of restricted diffusion in the inferior left cerebellum. Patient mentions a previous diagnosis of "a lot of water behind the drum" and a propensity for vertigo. Given these findings and the concurrent influenza B infection, the vertigo is likely peripheral in origin, possibly due to otitis media or labyrinthitis secondary to the viral infection. We will start the medication for Tamiflu for positive influenza and antibiotic ear drops for possible ear infection. REVIEW OF SYSTEMS 12-point ROS reviewed with patient. All pertinent positives mentioned above. Otherwise negative, noncontributory, non-pertinent. PHYSICAL EXAM GENERAL APPEARANCE: The patient is awake, alert, and oriented, in no acute cardiopulmonary distress. NEUROLOGICAL: Cranial nerves II-XII grossly intact. Motor is 5/5 in bilateral upper and lower extremities proximal to distal. No sensory deficits. HEENT: Face is symmetric. Pupils are equal and reactive. Extraocular movements are intact. NECK: Supple. No JVD. No thyromegaly. No submental, submandibular, pre- /postauricular, occipital or supraclavicular lymphadenopathy. CHEST: Normal chest expansion. No Telemetry. LUNGS: Absence of any rales, rhonchi or any wheezing. CARDIOVASCULAR: Regular. S1 and S2 normal. No appreciable rubs, murmurs or gallops. ABDOMEN: Soft, nontender, and nondistended. There is no rebound, voluntary guarding, or rigidity. : Deferred. No Almodovar. EXTREMITIES: Non-edematous and not cyanotic. No clubbing. Good capillary refill. SKIN: No skin breakdown. Vital Signs (last 8hr) Date Time Temp Pulse Resp B/P (MAP) Pulse Ox O2 Delivery O2 Flow Rate FiO2 12/28/24 12:00 97.7 60 18 128/74 99 Room Air 12/28/24 08:00 98.1 63 20 97/60 98 Room Air LABS: Laboratory: Test 12/28/24 07:05 12/28/24 07:04 12/28/24 05:16 12/28/24 03:33 Range/Units Influenza Type A Antigen Negative For Type A NEGATIVE Influenza Type B Antigen Positive For Type B *A NEGATIVE SARS-CoV-2, RNA, NAAT NEGATIVE SARS CoV-2 NEGATIVE Urine Opiates Screen POSITIVE H NEGATIVE Urine Barbiturates Screen NEGATIVE NEGATIVE Urine Phencyclidine Screen NEGATIVE NEGATIVE Urine Amphetamines Screen NEGATIVE NEGATIVE Urine Benzodiazepines Screen NEGATIVE NEGATIVE Urine Cocaine Screen NEGATIVE NEGATIVE Urine Marijuana (THC) Screen NEGATIVE NEGATIVE Whole Blood Glucose 103 70-110 MG/DL White Blood Count 5.7 4.8-10.8 K/uL Red Blood Count 4.29 4.00-5.50 MIL/uL Hemoglobin 13.5 12.0-16.0 g/dL Hematocrit 39.4 36-48 % Mean Corpuscular Volume 91.8 79-99 fL Mean Corpuscular Hemoglobin 31.5 27.0-33.0 pg Mean Corpuscular Hemoglobin Concent 34.3 32.0-36.0 g/dL Red Cell Distribution Width 12.0 11.0-15.5 % Platelet Count 151 130-400 K/uL Mean Platelet Volume 10.7 H 7.5-10.5 fL Immature Granulocyte % (Auto) 0.3 0-1 % Neutrophils (%) (Auto) 42.2 40.0-77.0 % Lymphocytes (%) (Auto) 48.3 21.0-51.0 % Monocytes (%) (Auto) 7.5 3.0-13.0 % Eosinophils (%) (Auto) 1.4 0.0-8.0 % Basophils (%) (Auto) 0.3 0.0-5.0 % Neutrophils # (Auto) 2.4 1.8-7.7 K/uL Lymphocytes # (Auto) 2.8 1.0-4.8 K/uL Monocytes # (Auto) 0.4 0.1-1.0 K/uL Eosinophils # (Auto) 0.08 0.00-0.70 K/uL Basophils # (Auto) 0.02 0.00-0.20 K/uL Absolute Immature Granulocyte (auto 0.02 0-1 K/uL Nucleated Red Blood Cells 0.0 0.0-0.19 % Sodium Level 140 136-145 mmol/L Potassium Level 4.6 3.5-5.1 mmol/L Chloride Level 105 101-111 mmol/L Carbon Dioxide Level 29 21-32 mmol/L Blood Urea Nitrogen 11 7-18 mg/dL Creatinine 0.8 0.5-1.0 mg/dL Glomerular Filtration Rate Calc 88 >90 mL/min Random Glucose 102 70-105 mg/dL Hemoglobin A1c 5.8 4.0-6.0 % Estimated Average Glucose (eAG) 120 70-126 mg/dL Total Calcium 9.0 8.5-10.1 mg/dL Phosphorus Level 4.9 2.5-4.9 mg/dL Magnesium Level 2.00 1.80-2.40 mg/dL Total Bilirubin 1.1 H 0.2-1.0 mg/dL Aspartate Amino Transf (AST/SGOT) 18 10-37 U/L Alanine Aminotransferase (ALT/SGPT) 21 12-78 U/L Alkaline Phosphatase 73 50-136 U/L Total Protein 7.3 6.0-8.3 g/dL Albumin 3.6 3.5-5.0 g/dL Vitamin B12 Level 663 193-986 pg/mL Folic Acid (LAB) > 20.00 H 2-20 ng/mL Thyroid Stimulating Hormone (TSH) 2.25 0.36-3.74 uIU/mL Test 12/27/24 15:09 12/27/24 15:07 Range/Units Urine Color COLORLESS YELLOW Urine Appearance CLEAR CLEAR Urine pH 6.5 5.0-8.0 Urine Specific [place] 1.005 1.001-1.031 Urine Protein NEGATIVE NEGATIVE mg/dL Urine Glucose (UA) NEGATIVE NEGATIVE mg/dL Urine Ketones NEGATIVE NEGATIVE mg/dL Urine Occult Blood NEGATIVE NEGATIVE Urine Nitrate NEGATIVE NEGATIVE Urine Bilirubin NEGATIVE NEGATIVE mg/dL Urine Urobilinogen 0.2 0.2-1.0 mg/dL Urine Leukocyte Esterase 500 H NEGATIVE [place]/uL Urine RBC 0-1 0-1 /HPF Urine WBC 26-50 H 0-1 /HPF Urine Squamous Epithelial Cells RARE 0-2 /HPF Urine Bacteria RARE None Seen /HPF Serum Test, Qualitative NEGATIVE NEGATIVE Current Medications Medications (Trade) Dose Ordered Sig/Michael Route PRN Reason Start Time Stop Time Status Last Admin Dose Admin Acetaminophen (TYLenol 325MG TAB) 650 mg Q6H PRN PO FEVER/MILD PAIN LEVEL 1-3 12/27/24 19:30 01/26/25 19:29 Acetaminophen (TYLenol 500MG TAB) 500 mg Q4H PRN PO TEMPERATURE GREATER THAN 101.5 12/28/24 09:30 01/27/25 09:29 12/28/24 10:15 500 MG Acetaminophen (TYLenol 650MG SUPPOSITORY) 650 mg Q6H PRN RC FEVER / MILD PAIN 1-3 IF NPO 12/27/24 19:30 01/26/25 19:29 Acetaminophen/ Hydrocodone Bitart (NORco 5/325MG) 1 tab Q6H PRN PO MODERATE PAIN (4-6) 4/19/25 19:30 01/01/25 19:29 12/27/24 19:38 1 TAB Aspirin (Aspirin 81mg Ec Tab) 81 mg DAILY PO 12/28/24 09:00 01/27/25 08:59 12/28/24 10:14 81 MG Atorvastatin Calcium (LIPItor 40MG) 40 mg HS PO 12/27/24 21:10 01/26/25 21:09 12/27/24 21:21 40 MG Ceftriaxone Sodium (Rocephin 2gm Inj) 2 gm Q24H IVPB 12/27/24 20:00 01/06/25 19:59 12/27/24 20:05 2 GM Diphenhydramine HCl (BENAdryl INJ) 25 mg Q6H PRN IV headache 12/28/24 09:30 01/27/25 09:29 12/28/24 10:26 25 MG Docusate Sodium (COLace 100MG CAP) 100 mg BID PRN PO CONSTIPATION 12/27/24 19:30 01/26/25 19:29 Enoxaparin Sodium (Lovenox) 30 mg DAILY SQ 12/28/24 09:00 01/27/25 08:59 Famotidine (Pepcid 20mg Tab) 20 mg BID PO 12/27/24 21:00 01/26/25 20:59 12/28/24 10:14 20 MG Insulin Human Regular (humuLIN R 100 UNIT/ML 3ML) INSULIN SLIDING SCAL... ACHS SQ 12/27/24 21:00 01/26/25 20:59 Labetalol HCl (TRANdate 20MG SYG) 10 mg Q2H PRN IV SBP GREATER THAN 160 12/27/24 19:30 01/26/25 19:29 Lactulose (Constulose 20gm/ 30ml Udcup) 20 gm Q6H PRN PO CONSTIPATION 12/27/24 19:30 01/26/25 19:29 Meclizine HCl (ANTIvert 25 mg) 25 mg TID PO 12/28/24 09:00 12/29/24 09:00 12/28/24 10:15 25 MG Ondansetron HCl (zoFRAN 4MG INJ) 4 mg Q6H PRN IVP NAUSEA/VOMITING 12/27/24 19:30 01/26/25 19:29 Prochlorperazine Edisylate (Compazine 10mg/ 2ml Inj) 10 mg Q6H PRN IV headache 12/28/24 09:30 01/27/25 09:29 Temazepam (restORIL 15 MG CAP) 15 mg HS PRN PO INSOMNIA/SLEEP 12/27/24 19:30 01/26/25 19:29 Topiramate (TopaMAX) 25 mg DAILY20 PO 12/28/24 20:00 01/27/25 19:59 DIAGNOSTICS / RADIOLOGY: [ ] ASSESSMENT: Intractable/recurrent left posterior headache radiates to left forehead, POA Dizziness, POA Hypertension, pain induced versus new onset hypertension Acute complicated cystitis, POA Hyperglycemia, without history of DM PLAN: -Admited to med tele/stroke unit -Neurological checks every 4 hours and as needed. -Continuous telemetry monitoring. -Antiplatelet therapy with Aspirin. -Atorvastatin 40 mg p.o. daily. -Blood pressure checks every 4 hours and as needed. -Systolic blood pressure between 120 to 160 to maintain adequate brain perfusion. -Patient passed dysphagia screen by nurse. -MRI of brain without contrast-Artifact versus 3 mm focus of restricted diffusion in the inferior left cerebellum. MRA head without contrast and MRA neck -negative -Pending Echo complete with spectral + color Doppler with bubble study to be done in am. -carotid Dopplers negative no occlusion seen -Consult neurology noted and followed accordingly-recommended to start Topamax at night and Benadryl IV with Tylenol oral and Compazine IV -Continue Meclizine 25 mg p.o. t.i.d. times 24 hours. -Start Rocephin 2 g IV daily. -Follow UA cultures. -Reconciled home medications once available. -Glucometer checks before meals and at bedtime with regular insulin sliding scale as needed -Education on low fat diet. -PT/OT evaluation. -AM labs: CBC, CMP, LFT, mag, phos, TSH, A1C, vit B12 level, folic acid leverl. -Monitor renal and liver function, monitor electrolytes and replace PRN -GI and DVT Pepcid IV daily, Lovenox, SCDs. ATTESTATION BY PHYSICIAN I have seen and examined the patient. I reviewed the documentation, medical decision making, and treatment plan as noted by the mid-level provider above. I agree with the findings and plan of care. VIKI VILLEGAS MD, AISHWARYA MD Dec 28, 2024 13:12
[2024-12-28] MEDS ORDERED: AMOXICILLIN 250MG CAP PO SCH (13:30)
[2024-12-28] MEDS: AMOX/CLAV 500/125MG TAB PO SCH (15:41)
[2024-12-28 16:00] VITALS: BP 106/63; PULSE 54; RESP 18; TEMP 98.1
[2024-12-28 20:00] VITALS: BP 109/66; PULSE 64; RESP 20; TEMP 98.1
[2024-12-28] MEDS ORDERED: DiphenhydrAMINE HCL 25 MG CAPSULE PO PRN (20:00)
[2024-12-28] MEDS: topIRAMate 25 MG TABLET PO SCH (21:40)
[2024-12-28 21:45] VITALS: O2SAT 98
[2024-12-29] VITALS: BP 142/76; PULSE 58; RESP 20; TEMP 97.6
[2024-12-29 04:00] VITALS: BP 121/67; PULSE 58; RESP 20; TEMP 98.1
[2024-12-29] MEDS: acetaMINOPHEN 325 MG TAB PO PRN (06:25)
[2024-12-29 07:30] VITALS: O2SAT 96
[2024-12-29 08:21] VITALS: BP 105/65; PULSE 62; RESP 18; TEMP 98.2
[2024-12-29] MEDS: NITROFURANTOIN MONOHYD/M-CRYST 100 MG CAPSULE PO SCH (10:26)
--- NOTE | 2024-12-29 11:58 | NUR ---
DCP: HOME Pt lives alone in home she rents. 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 Does not use any DME or in home care services. PCP is Jerome Plummer and uses Barb for rx. dcp is home
[2024-12-29 12:01] VITALS: BP 128/70; PULSE 60; RESP 17; TEMP 98.3
[2024-12-29] MEDS: OSELTAMIVIR PHOSPHATE 75 MG CAP PO SCH (12:20)
--- NOTE | 2024-12-29 13:33 | DS ---
Discharge Summary Hospital Course Summary: Ms. Morse is a 54-year-old female with no significant past medical history who presented to [facility] for evaluation of persistent headaches and dizziness that has been ongoing for 15 days. She has has seen by her primary care doctor who performed a CT scan that was normal. He is scheduled an MRI in April. She was also referred to Neurology but states it will take months to see the specialist. The patient reports that her pain is in the posterior upper neck and posterior lower head. She reports that this pain radiates to the left side of her forehead. She reports that this pain sometimes feels like tingling. Patient reports that with this pain she becomes anxious, a little short of breath, and feels that her left arm and her left leg feel weak during the pain. Patient reports that the symptoms of anxiety, shortness of breath and weakness to the left extremities go away when the headache goes away. The patient denies any other neurological symptoms. The patient states that recently she has had high blood pressure and that her PCP states that the new onset of high blood pressure is due to her pain. The patient states that her PCP did not give her any medications for the high blood pressure and was informed to take Tylenol for the pain. The patient has been treated for the dizziness by her PCP with Atarax 25 mg p.o. b.i.d. for anxiety, Compazine 10 mg tablet oral t.i.d. for dizziness, and meclizine 12.5 Mg p.o. prn dizziness t.i.d. times 10 days. The patient denied any other illness, fevers, nausea, vomiting, pain with urination, or any other pain. patient was seen and examined at the bedside. vitals Stable labs unremarkable. Evaluated by Neurology Dr. Rivera clinical presentation is consistent with migraine, potentially triggered by a concurrent influenza B infection. Differential diagnosis includes tension-type headache and secondary headaches due to intracranial pathology, though the latter is less likely given the absenc e of red flag symptoms. Plan:- Start topiramate 25mg po day - Order MRI of the brain to rule out intracranial pathology-Artifact versus 3 mm focus of restricted diffusion in the inferior left cerebellum, confirmed with neurology no stroke. Patient mentions a previous diagnosis of "a lot of water behind the drum" and a propensity for vertigo. Given these findings and the concurrent influenza B infection, the vertigo is likely peripheral in origin, possibly due to otitis media or labyrinthitis secondary to the viral infection. Echo Left ventricular cavity size is normal. LVEF is 55-60% with normal LV segmental wall motion. Started on Tamiflu and Augmentin for ear infection. Patient is in a stable condition to be discharged. Continues on topiramate, meclizine, Tamiflu and Augmentin. Mentioned all the medications on the prescriptions script, which may be handed over to the patient while discharged. Patient has a scheduled follow with Dr. Rivera on on 01 January 2025. Procedure(s): PATIENT: MAYRA MORSE MR#: [id number] : 1970 SEX: F AGE: 54 LOCATION: [facility] ORDER 57 STATUS: REG ER REPORT#: [id number] SERVICE 56 REASON: persistent headaches/dizziness ORDERING PHYSICIAN: VANESSA COLON PROCEDURE: HEAD WO - CT HEAD/BRAIN W/O CONTRAST CT HEAD/BRAIN W/O CONTRAST INDICATION: persistent headaches/dizziness TECHNIQUE: CT HEAD/BRAIN W/O CONTRAST. CT was performed with one or more of the following dose reduction techniques: Automated exposure control, adjustment of the mA and/or kV according to the patient's size, or use of the iterative reconstruction technique. Comparison: None FINDINGS: The ventricles and extra ventricular CSF spaces are within normal limits. No mass effect, midline shift or herniation. No extra axial collection. No acute intracranial bleed. The visualized paranasal sinuses and mastoid air cells are normally aerated. IMPRESSION: No acute intracranial findings. DICTATED BY: MILADYS PATHAK MD DATE: 12/27/24 1547 ELECTRONICALLY SIGNED BY: MILADYS PATHAK MD DATE: 12/27/24 1551 PATIENT: MAYRA MORSE MR#: [id number] : 1970 SEX: F AGE: 54 [facility] 27 STATUS: [facility] REPORT#: [id number] SERVICE 22 REASON: dizziness ORDERING PHYSICIAN: CHERIE PAZ GRINDER SET UP OPERATOR INTERNAL PROCEDURE: CAROTID - US CAROTID DUPLEX US CAROTID DUPLEX HISTORY: dizziness TECHNIQUE: Real time color doppler ultrasound examination of both carotid systems was performed using B mode, color flow and spectral analysis. FINDINGS: Right Extracranial Circulation: CCA peak systolic velocity 58 cm/sec ICA peak systolic velocity of 76 cm/sec ECA peak systolic velocity of 101 cm/sec Ratio ICA/CCA = 1.3 Vertebral artery 38 cm/sec Left Extracranial Circulation: CCA peak systolic velocity 55 cm/sec ICA peak systolic velocity of 95 cm/sec ECA peak systolic velocity of 72 cm/sec Ratio ICA/CCA = 1.7 Vertebral artery 50 cm/sec Left neck lymph node is seen measuring 5 mm. IMPRESSION: No evidence of flow-limiting stenosis by velocity criteria in the visualized bilateral ICA. DICTATED BY: MILADYS PATHAK MD DATE: 12/27/242028 ELECTRONICALLY SIGNED BY: MILADYS PATHAK MD DATE: 12/27/242031 PATIENT: MAYRA MORSE MR#: [id number] : 1970 SEX: F AGE: 54 LOCATION: [facility] ORDER 2300 STATUS: ADM IN REPORT#: [id number] SERVICE 0800 REASON: dizziness, recurrent headache, intermittent left arm/leg weakness with SAXENA ORDERING PHYSICIAN: CHERIE PAZ GRINDER SET UP OPERATOR INTERNAL PROCEDURE: BRAIN WO - MR BRAIN WO CON MR BRAIN WO CON HISTORY: dizziness, recurrent headache, intermittent left arm/leg weakness with SAXENA TECHNIQUE: Multiplanar multisequence MRI of the brain was performed without contrast. FINDINGS: Artifact versus 3 mm focus of restricted diffusion in the inferior left cerebellum. Minimal scattered bilateral nonspecific white matter changes Correlate clinically. The ventricles and extra ventricular CSF spaces are within normal limits. No mass effect, midline shift or herniation. No extra axial collection. No acute intracranial bleed. The visualized paranasal sinuses and mastoid air cells are normally aerated. IMPRESSION: Artifact versus 3 mm focus of restricted diffusion in the inferior left cerebellum. Minimal scattered bilateral nonspecific white matter changes Correlate clinically. DICTATED BY: MILADYS PATHAK MD DATE: 12/28/24 1200 ELECTRONICALLY SIGNED BY: MILADYS PATHAK MD DATE: 12/28/24 120 PATIENT: MAYRA MORSE MR#: [id number] : 1970 SEX: F AGE: 54 LOCATION: [facility] ORDER 99 STATUS: ADM IN REPORT#: [id number] SERVICE 08 REASON: dizziness, persistent/intractable headaches ORDERING PHYSICIAN: CHERIE PAZ GRINDER SET UP OPERATOR INTERNAL PROCEDURE: MRA HEAD - MR ANGIO HEAD, WO CON MR ANGIO HEAD, WO CON HISTORY: dizziness, persistent/intractable headaches TECHNIQUE: MR ANGIO HEAD, WO CON. Vessels were imaged utilizing three-dimensional time of flight MR angiographic technique. MIP and source images are presented. FINDINGS: . The visualized bilateral vertebral and basilar arteries are patent. No significant stenosis in the posterior cerebral arteries. The bilateral internal carotid arteries are patent without high-grade stenosis. No significant stenosis seen in the anterior cerebral and middle cerebral arteries up to the bifurcation. No aneurysm is seen. However, the presence of an aneurysm 3 mm or smaller may not be evident on MR angiography. No vascular displacement is seen. Impression: No evidence of high-grade stenosis or major vessel occlusion. DICTATED BY: MILADYS PATHAK MD DATE: 12/28/24 120 ELECTRONICALLY SIGNED BY: MILADYS PATHAK MD DATE: 12/28/24 1213 PATIENT: MAYRA MORSE MR#: [id number] : 1970 SEX: F AGE: 54 LOCATION: [facility] ORDER 99 [facility]US: [facility] REPORT#: [id number] SERVICE 08 REASON: recurrent posterior L SAXENA/ L upper neck pain, dizziness, L arm/leg weakness ORDERING PHYSICIAN: CHERIE PAZ GRINDER SET UP OPERATOR INTERNAL PROCEDURE: CAROTID WO - MRA CAROTIDS WO MRA CAROTIDS WO HISTORY: recurrent posterior L SAXENA/ L upper neck pain, dizziness, L arm/leg weakness TECHNIQUE: MRA CAROTIDS WO. MR angiography was performed using [id number] angiographic techniques. FINDINGS: Evaluation of the proximal vessels is degraded due to artifact. No high-grade stenosis is seen of either extracranial carotid artery system. Both vertebral arteries are seen with antegrade flow. IMPRESSION: No flow-limiting stenosis or major vessel occlusion is seen. DICTATED BY: MILADYS PATHAK MD DATE: 12/28/241210 ELECTRONICALLY SIGNED BY: MILADYS PATHAK MD DATE: 12/28/241213 PATIENT: MAYRA MORSE MR#: [id number] : 1970 SEX: F AGE: 54 LOCATION: [facility] ORDER 27 STATUS: ADM IN REPORT#: [id number] SERVICE 22 REASON: dizziness ORDERING PHYSICIAN: CHERIE PAZ PROCEDURE: ECHO CMP - ECHO 2-D COMPLETE APPROVED REPORT EXAM: Two-dimensional and M-mode echocardiogram with Doppler and color Doppler. INDICATION ICD: dizziness 2D Dimensions RVDd 2.7 cm LVEF(%) 72.9 (>50%) LVED Vol(simp.) 65.0 mL IVSd 0.8 (0.7-1.1cm) FS(%) 41 % LVES Vol(simp.) 29.0 mL LVDd 3.8 (3.8-5.6cm) LA (2D) 2.4 (1.6-4.0cm) LVEF(%, simp.) 56 % PWd 0.9 (0.7-1.1cm) Ao Root(2D) 2.7 (2.0-3.7cm) LA ESV INDEX (BP) 17.94 mL/m2 LVDs 2.2 (2.5-4.0cm) LVOT diam 1.9 (1.8-2.4cm) Deformation Strain Apical 4 -18.3 % Apical 2 -19.5 % Apical 3 -17.2 % Global Strain -18.3 % M-Mode Dimensions EPSS 0.5 cm LA (MM) 2.7 (1.6-4.0cm) Ao Root(MM) 2.5 (2.0-3.7cm) Aortic Valve AoV Vmax 1.3 m/s Ao Peak GR 7.2 mmHg LVOT Vmax 1.3 m/s AoV VTI 0.3 m Ao Mean GR 3.3 mmHg LVOT VTI 0.28 m RICCO (VMAX) 2.39 cm2 RICCO (VTI) 2.4 cm2 Mitral Valve MV E Vmax 74.8 cm/s DECEL Time 241 ms MV A Vmax 70.1 cm/s P 1/2 T 93 ms E/A ratio 1.1 MVA (PHT) 2.4 cm2 TDI E/E' Medial 8.5 E/E' Lateral 5.4 Medial E' Peak V 8.78 cm/s Lateral E' Peak V 13.87 cm/s Pulmonary Valve PV Vmax 1.1 m/s PV Mean GR 3.0 mmHg PV Peak GR 4.9 mmHg Tricuspid Valve TR Vmax 2.2 m/s RVSP 18.9 mmHg TR Peak GR 19.5 mmHg Left Ventricle Left ventricular cavity size is normal. There is normal LV segmental wall motion. There is normal left ventricular wall thickness. LVEF is 55-60%. The left ventricular diastolic function is normal. Right Ventricle The right ventricle is normal size. The right ventricular systolic function is normal. Atria The left atrium size is normal. The right atrium size is normal. Aortic Valve The aortic valve is normal in structure and function. No aortic regurgitation is present. There is no aortic valvular stenosis. Mitral Valve The mitral valve is normal in structure and function. There is trace mitral valve regurgitation noted. There is no mitral valve stenosis. Tricuspid Valve The tricuspid valve is normal in structure and function. There is trace tricusp id valve regurgitation noted. Pulmonic Valve Pulmonic valve is not well visualized. There is no pulmonic valvular regurgitation. Great Vessels The aortic root is normal in size. The IVC is normal in size and collapses >50% with inspiration. Pericardium No pericardial effusion. Other Information Quality : Good Conclusion Left ventricular cavity size is normal. LVEF is 55-60% with normal LV segmental wall motion. The left ventricular diastolic function is normal. The right ventricular systolic function is normal. Both atria are normal in size. No hemodynamically significant valvular abnormalities. No pericardial effusion. DICTATED BY: TREY CAN MD DATE: 12/28/24 1008 ELECTRONICALLY SIGNED BY: TREY CAN MD DATE: 12/28/24 1305 RUN DATE: 12/28/24 [facility] [address] RUN TIME: [id number] [address], [place] [address] Department of Laboratories CLIA # [id number] Caustic Preparer: Lucas Butcher DO Specimen Report PATIENT: MAYRA MORSE ACCT: [id number] LOC: [facility] U: [id number] AGE/SX: 54/F ROOM: [facility] RE12/27/[address]: BELEM HERRERA MD : 1970 BED: 1 DIS: STATUS: ADM IN TLOC: SPEC: [id number] ALINA: 12/27/24 STATUS: RES REQ: [id number] RECD: 12/27/[address]: VANESSA COLON SOURCE: URINE CC ENTR: 12/27/24-[address]: PATY GOMEZ [facility]: NONE ORDERED: URINE CULTURE ------- ----- Procedure Result Francisco Date-Time URINE CULTURE Preliminary 12/28/24-1749 REPORT URINE 10,000 TO 50,000 CFU Assessment/Plan: ASSESSMENT: Intractable/recurrent left posterior headache radiates to left forehead, POA Dizziness, POA Hypertension, pain induced versus new onset hypertension Acute complicated cystitis, POA Hyperglycemia, without history of DM PLAN: ADMISSION DATE: 12/27/2024 DISCHARGE DATE: 12/29/2024 DISPOSITION: Home CONDITION: Stable [employer] PRODUCT DEVELOPMENT MANAGER(S): Neurology: DR Rivera FOLLOW UP APPOINTMENT(S): patient follow with Dr. Winston on January 01, 2025, which has been scheduled PROCEDURES: none IMAGING (S) report attached to summary : Attached above MICROBIOLOGY: report attached to summary; attached above ACTIVITY: ab tho HOME MEDICATIONS : Continued NEW MEDICATIONS- topiramate, Tamiflu, Augmentin, meclizine TEACHING: We reinforced the importance of compliance,with follow-up appointment and medication compliance. Advised patient to follow-up neurology Emergency instructions: The patient was instructed to present to the nearest Emergency Department or call 911 should their symptoms return or worsen. Medication Profile: No Active Prescriptions or Reported Meds Time spent arranging discharge: 1-30 minutes ATTESTATION BY PHYSICIAN I have seen and examined the patient. I reviewed the documentation, medical decision making, and treatment plan as noted by the mid-level provider above. I agree with the findings and plan of care. VIKI VILLEGAS MD, AISHWARYA MD Dec 29, 2024 13:33
== END 2024-12-29 15:20 | disposition home or self-care (01) ==
LOC: EDH 14:14 → EDHIP 18:22 → INTOOBSV 18:22 → 4AH 22:19
PROVIDERS: ADMIT Internal Medicine; ATTEND Internal Medicine
DX: G43.909 Migraine, unspecified, not intractable, without status migrainosus (principal); Z20.822 Contact with and (suspected) exposure to COVID-19; R42 Dizziness and giddiness; I10 Essential (primary) hypertension; J10.1 Influenza due to other identified influenza virus with other respiratory manifestations; N30.00 Acute cystitis without hematuria; R73.9 Hyperglycemia, unspecified; H53.149 Visual discomfort, unspecified; R60.0 Localized edema; R09.89 Other specified symptoms and signs involving the circulatory and respiratory systems; F41.9 Anxiety disorder, unspecified; Z98.891 History of uterine scar from previous surgery; Z79.899 Other long term (current) drug therapy
CPT/HCPCS: 96365; 99285; 80048; 84703; 85025 ×2; 87086; 82948 ×3; 81001; 36415 ×2; 70450; 93880; 96375; 83036; 84443; 83735; 84100; 80053; 80305; 87804 ×2; 82607; 82746; 87635; 93306; 93356; 70551; 70544; 70547; G0378 ×2; J0696; J1200; J1650; J0780